=== PATIENT | male | born 1965 | race Caucasian/White ===

== ENCOUNTER 2019-05-13 14:37 | Emergency (ER) | payer BC ==
--- NOTE | 2019-05-13 15:27 | UC ---
Hypertension HPI - HPI Summary HPI Summary: 54 yo male noted to have markedly elevated BP at work This was checked prior to allergy testing He has no MD nor has he had any desire to see one in the past He has had no CP/SOB/headache He denies any hospital visits as an adult He is a smoker - History of Current Complaint Chief Complaint: UCGeneralIllness Stated Complaint: HIGH BP Time Seen by Provider: 05/13/19 14:55 Hx Obtained From: Patient Onset/Duration: Other - unknown Reported Blood Pressure Prior To Arrival:: 188/126 Aggravating Factor(s): Nothing Alleviating Factor(s): Nothing Associated Signs And Symptoms: Negative: Chest Pain, Vision Changes, Anxiety, Recent Stress, Headaches, Numbness, Tingling, Weakness, Dizziness, SOB, Swelling - Risk Factors Cardiac Risk Factors: Smoking - Allergies/Home Medications Allergies/Adverse Reactions: Allergies Allergy/AdvReac Type Severity Reaction Status Date / Time No Known Allergies Allergy Verified 05/13/19 14:54 PMH/Surg Hx/FS Hx/Imm Hx Previously Healthy: Yes - Surgical History Surgical History: None - Social History Alcohol Use: None Substance Use Type: None Substance Use Comment - Amount & Last Used: one liter of caffinated soda a day Smoking Status (MU): Heavy Every Day Tobacco Smoker Type: Cigarettes Amount Used/How Often: 1 ppd Household Exposure Type: Cigarettes Cessation Counseling: Patient Advised to Stop Review of Systems All Other Systems Reviewed And Are Negative: Yes Constitutional: Positive: Negative Skin: Positive: Negative Eyes: Positive: Negative ENT: Positive: Negative Respiratory: Positive: Negative Cardiovascular: Positive: Negative Gastrointestinal: Positive: Negative Genitourinary: Positive: Negative Motor: Positive: Negative Neurovascular: Positive: Negative Musculoskeletal: Positive: Negative Neurological: Positive: Negative Psychological: Positive: Negative Physical Exam Triage Information Reviewed: Yes Appearance: Well-Appearing, No Pain Distress, Well-Nourished Vital Signs: Initial Vital Signs Temp 98.5 F 05/13/19 14:55 Pulse 88 05/13/19 14:55 Resp 20 05/13/19 14:55 BP 196/130 05/13/19 14:55 Pulse Ox 99 05/13/19 14:55 Vital Signs Reviewed: Yes Eyes: Positive: Conjunctiva Clear, Other: - fundi- A/V nicking, no hemorrhage ENT: Positive: Hearing grossly normal. Negative: Nasal congestion, Nasal drainage, Trismus, Muffled voice, Hoarse voice Neck: Positive: Supple, Nontender, No Lymphadenopathy, Other: - no carotid bruits Respiratory: Positive: Lungs clear, Normal breath sounds, No respiratory distress, No accessory muscle use Cardiovascular: Positive: RRR, No Murmur Abdomen Description: Positive: Nontender, No Organomegaly, Soft, Other: - no bruits. Negative: CVA Tenderness (R), CVA Tenderness (L) Musculoskeletal: Positive: ROM Intact, No Edema Neurological: Positive: Alert Psychological Exam: Normal Skin Exam: Normal Diagnostics - Laboratory Lab Results: UA tr RBCs - EKG Cardiac Rate: NL Cardiac Rhythm: Sinus: Normal Ectopy: None ST Segment: Normal Summary of EKG Findings: LVH and ? OLD IWMI Hypertension Course/Dx - Differential Dx/Diagnosis Provider Diagnosis: Severe hypertension, Abnormal EKG Discharge ED - Sign-Out/Discharge Documenting (check all that apply): Patient Departure All imaging exams completed and their final reports reviewed: No Studies - Discharge Plan Condition: Stable Disposition: HOME Prescriptions: NIFEdipine ER TAB* [Procardia Xl TAB*] 30 mg PO DAILY #14 tab.xl Patient Education Materials: Hypertension (ED) Referrals: [facility] [Outside] - As Soon As Possible [facility] [Outside] - As Soon As Possible Additional Instructions: Call both the numbers provided and see where you can get the soonest appt Your BP is markedly elevated Should you develop and of the follow you should go directly to the ER: Chest pain Shortness of breath Headache Your EKG is abnormal You may have had an ND in the past I suggest that for now you -Take a baby aspirin a day -decrease or stop smoking -watch your diet You will probably have you medications change and may have others added based on further BP readings and test results - Billing Disposition and Condition Condition: STABLE Disposition: Home
[2019-05-13 16:08] VITALS: BP 186/110
[2019-05-14 10:47] LABS: ABS Basophils 0.1 10^3/ul (0-0.2); ABS Eosinophils 0.3 10^3/ul (0-0.6); ABS Lymphocytes 1.9 10^3/ul (1.0-4.8); ABS Monocytes 0.6 10^3/ul (0-0.8); ABS Neutrophils 5.9 10^3/ul (1.5-7.7); Hematocrit 46 % (42-52); Hemoglobin 15.9 g/dL (14.0-18.0); Lymphocyte % 21.4 %; Mean Corpuscular HGB Conc 35 g/dL (31-36); Mean Corpuscular Hemoglobin 31 pg (27-31); Mean Corpuscular Volume 91 fL (80-94); Mean Platelet Volume 8.8 fL (7.4-10.4); Nucleated Red Blood Cells % 0.1; Platelet Count 200 10^3/uL (150-450); Red Blood Count 5.07 10^6 /uL (4.18-5.48); Red Cell Distribution Width 13 % (10-15); White Blood Count 8.7 10^3/uL (3.5-10.8)
[2019-05-14 10:54] LABS: Albumin 4.7 g/dL (3.2-5.2); Calcium 9.5 mg/dL (8.6-10.3); Potassium 4.2 mmol/L (3.5-5.0); Total Bilirubin 0.5 mg/dL (0.2-1.0)
[2019-05-14 11:00] LABS: Albumin/Globulin Ratio 1.7 (1-3); BUN/Creatinine Ratio 17.7 (8-20); Globulin 2.8 g/dL (2-4); Total Protein 7.5 g/dL (6.4-8.9)
== END 2019-05-13 16:17 | disposition home or self-care (01) ==
LOC: UCCORT 14:37
DX: I10 Essential (primary) hypertension (principal); R94.31 Abnormal electrocardiogram [ECG] [EKG]; F17.210 Nicotine dependence, cigarettes, uncomplicated
CPT/HCPCS: 36415; 80053; 81003; 85025; 93005; 99202; G0463